=== PATIENT | male | born 1960 | race Caucasian/White ===

== ENCOUNTER → 2016-12-09 | Outpatient (CLI) | payer BC ==
[~2016-12-09] MED LIST: ALPR0.254 PO; FAMO-119 PO; FLEC100T2 PO; LEVO500T69 PO; LISI20TA PO; METR500T PO; NAPR-243 PO; OMEG-12 PO; RIVA20TA2 PO; flecainide; lisinopril; xarelto
--- NOTE | 2016-12-09 14:11 | Diagnostic Imaging Report ---
3 views of the right foot. INDICATION: Arthritis. FINDINGS: There is deformity with well corticated margins suggestive of old erosions at the joint surfaces of the PIP joint and the little finger. This could be secondary to trauma or prior arthritis. There is no acute fracture. No dislocation or radiopaque foreign body. Mild calcaneal spurring is seen. IMPRESSION: No acute process. Dictated by: Dictated on workstation # [id number]
--- NOTE | 2016-12-09 14:14 | Diagnostic Imaging Report ---
Three views of the right ankle. INDICATION: Arthritis. Achilles tendon abnormality. FINDINGS: There is no fracture, dislocation, or radiopaque foreign body seen. The ankle mortise is normal in configuration based on the anterior and oblique projections. The joint space evaluation on the lateral view is suboptimal. Mild calcaneal spur is seen. IMPRESSION: No definite abnormality. Dictated by: Dictated on workstation # [id number]
== END ==
LOC: RAD 12:55
PROVIDERS: ATTEND Internal Medicine
DX: M19.90 Unspecified osteoarthritis, unspecified site (principal)
CPT/HCPCS: 73610; 73630

== ENCOUNTER → 2017-02-13 | Outpatient (CLI) | payer BC ==
--- OUTSIDE RECORDS SUMMARY | 2017-02-13 09:56 | XMS REPORT | Continuity of Care Document ---
Author Author [facility] Organization [facility] Address Unknown Phone Unavailable Allergies Active Description Code Type Severity Reaction Onset Reported/Identified Relationship to Patient Clinical Status Yes No Known Drug Allergies [id number] Drug Allergy Unknown N/ A 10/22/2014 Medications Problems Date Dx Coded Attending Type Code Diagnosis Diagnosed By 10/24/2014 SHREYA RANKIN DO Ot 305.1 TOBACCO USE DISORDER 10/24/2014 SHREYA RANKIN DO Ot 327.23 OBSTRUCTIVE SLEEP APNEA (ADULT) ( PEDIATR 10/24/2014 SHREYA RANKIN DO Ot 401.9 HYPERTENSION NOS 10/24/2014 SHREYA RANKIN DO Ot 427.31 ATRIAL FIBRILLATION 10/24/2014 SHREYA RANKIN DO Ot 562.11 DIVERTICULITIS COLON (W/O MENT OF HEMORR 12/10/2016 SHREYA RANKIN DO Ot M19.90 UNSPECIFIED OSTEOARTHRITIS, UNSPECIFIED 01/13/2017 SHREYA RANKIN DO, Ot M19.90 UNSPECIFIED OSTEOARTHRITIS, UNSPECIFIED Procedures Results Encounters ACCT No. Visit Date/Time Discharge Status Pt. Type Provider Facility Loc./Unit Complaint [id number] 10/22/2014 04:22:00 2013 09:55:00 DIS Inpatient SHREYA RANKIN DO [facility] 4TH ACUTE DIVERTICULITIS [id number] 12/09/2016 12:55:00 ACT Outpatient SHREYA RANKIN DO [facility] RAD ARTHIRITIS
--- NOTE | 2017-02-13 12:58 | Diagnostic Imaging Report ---
PROCEDURE: MRI right joint lower extremity without contrast. TECHNIQUE: Multiplanar, multisequence non contrast-enhanced MRI of the right lower extremity was accomplished. INDICATION: Ankle pain. COMPARISON: There are no previous MRI examinations available for comparison. FINDINGS: The plain film examination of the right ankle performed on 12/09/16 failed to show an acute abnormality. On the STIR sagittal series, there is an area of slightly increased signal involving the inferior margin of the lateral malleolus of the distal fibula. There is also a suggestion of a faint linear area of diminished density extending through this area. I suspect there is a nondisplaced fracture in this region with associated bone edema. There is also slightly increased signal involving the posterolateral aspect of the talar body. This is probably secondary to bone edema from a recent contusion, as well. Furthermore there is increased signal about the posterior talofibular ligament on the axial T2 series. This does suggest edema/inflammation.. There may be a partial tear of the ligament but, for the most part, the ligament appears to be intact. The anterior talofibular ligament is also somewhat indistinct and this may be partially torn, as well. There is also a moderate joint effusion present and there is some fluid in the subtalar recess. There is also generalized soft tissue edema along the posterior aspect of the ankle joint. A small amount of soft tissue edema is also seen in the sinus Tarsi but there is no evidence of fibrosis to suggest a sinus Tarsi syndrome. No other abnormal signal is seen arising from the osseous structures to suggest bone edema or fracture. The other major ligaments and tendons are intact. There is a small amount of fluid in the tendon sheaths of the peroneal tendons and the posterior tibialis and flexor digitorum longus tendons. This does suggest mild tenosynovitis. IMPRESSION: 1. The area of altered signal along the posterior aspect of the lateral malleolus does suggest bone edema secondary to a microfracture. There is also a vague area of bone edema in the posterolateral aspect of the body of the talus. Most likely this is related to a recent contusion. No other acute bony abnormality is noted. 2. There is edema/inflammation of the posterior talofibular ligament. The ligament itself is somewhat indistinct and may be partially torn. There may also be a partial tear of the anterior talofibular ligament. The other major ligaments and tendons show no sign of an acute injury. 3. There is a moderate joint effusion present and there is soft tissue edema along the posterior aspect of the ankle joint. There is also some soft tissue edema in the sinus Tarsi but there is no sign of fibrosis. Dictated by: Dictated on workstation # [id number]
== END ==
LOC: RAD 09:53
PROVIDERS: ATTEND Orthopaedic Surgery
DX: M25.562 Pain in left knee (principal); M76.61 Achilles tendinitis, right leg
CPT/HCPCS: 73721

== ENCOUNTER 2019-11-14 15:12 | Outpatient (CLI) | payer BC ==
[~2019-11-14] VITALS: Ht 175 cm; Wt 114.5 kg
[~2019-11-14 15:12] MED LIST changes: +FEBU80TA PO
== END 2019-11-14 15:55 ==
LOC: PREOP 15:12
PROVIDERS: ATTEND Internal Medicine
DX: Z01.818 Encounter for other preprocedural examination (principal)

== ENCOUNTER → 2019-11-27 | Outpatient (CLI) | payer BC ==
--- NOTE | 2019-11-27 15:15 | Diagnostic Imaging Report ---
INDICATION: Low back pain. EXAMINATION: Lumbar spine. TECHNIQUE: PA and lateral views of the lumbar spine were obtained. FINDINGS: The vertebral body height and alignment appear normal. There are small osteophytes forming anteriorly at L3-L4 and L1-L2. The alignment is normal. The intervertebral disc spaces are well-maintained. IMPRESSION: Minimal spondylosis deformans. No acute abnormality is seen. Dictated by: Dictated on workstation # [id number]
== END ==
LOC: RAD 13:54
PROVIDERS: ATTEND Internal Medicine
DX: M54.42 Lumbago with sciatica, left side (principal)
CPT/HCPCS: 72100

== ENCOUNTER → 2020-08-12 | Outpatient (CLI) | payer BC ==
--- NOTE | 2020-08-12 16:09 | Diagnostic Imaging Report ---
PROCEDURE: MRI lumbar spine. TECHNIQUE: Multiplanar, multisequence MRI of the lumbar spine was performed without contrast. INDICATION: Low back pain and right hip pain. COMPARISON: No prior studies are available for comparison. FINDINGS: The curvature and alignment of the lumbar spine are normal. The vertebral body heights are maintained. No acute compression fracture is detected. 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 There is some generalized disc desiccation but disc heights are well-maintained. The conus is unremarkable at the L1 level. T12-L1: The central canal and neuroforamina are widely patent. L1-2: The central canal is widely patent. Mild bilateral neuroforaminal narrowing is seen. L2-3: The central canal is patent. The neuroforamina appear patent. L3-4: There is some ligamentous thickening and facet changes. There is also a mild broad-based disc/osteophyte complex flattening the ventral thecal sac. The central canal remains patent. There is moderate narrowing of the right lateral recess. There is also mild to moderate narrowing of the right neuroforamen. L4-5: A broad-based disc/osteophyte complex flattens the ventral thecal sac. The central canal is patent. There is moderate narrowing of the bilateral lateral recesses. There is also [id number] bilateral neuroforaminal narrowing. L5-S1: The central canal is patent. There is a broad-based disc/osteophyte complex flattening the ventral thecal sac. This does result in moderate bilateral lateral recess narrowing. There is also mild to moderate bilateral neuroforaminal narrowing. The paraspinous tissues are unremarkable. IMPRESSION: Generalized lumbar spondylosis with multilevel lateral recess and neuroforaminal narrowing described level by level above. No central canal stenosis is seen. No acute compression fracture is identified. Dictated by: Dictated on workstation # [id number]
== END ==
LOC: RAD 14:39
PROVIDERS: ATTEND Internal Medicine
DX: M48.07 Spinal stenosis, lumbosacral region (principal); M47.816 Spondylosis without myelopathy or radiculopathy, lumbar region; M99.03 Segmental and somatic dysfunction of lumbar region; M99.04 Segmental and somatic dysfunction of sacral region
CPT/HCPCS: 72148

== ENCOUNTER → 2021-07-07 | Outpatient (CLI) | payer BC ==
[~2021-07-07] MED LIST changes: +ALPR.25T PO
--- NOTE | 2021-07-07 15:17 | Diagnostic Imaging Report ---
INDICATION: Right hip pain. TIME OF EXAM: 2:42 p.m. Femoroacetabular alignment is normal. There are severe osteoarthritic changes to the right hip. There is complete loss of the superior joint space with significant narrowing of the medial joint space. There is spurring at the femoral head and neck junction. No fractures are seen. Right-sided rami are intact. IMPRESSION: Severe osteoarthritic changes to the right hip. No acute bony abnormality is detected. Dictated by: Dictated on workstation # [id number]
== END ==
LOC: RAD 14:19
PROVIDERS: ATTEND Internal Medicine
DX: M16.11 Unilateral primary osteoarthritis, right hip (principal)
CPT/HCPCS: 73502

== ENCOUNTER → 2022-02-26 | Outpatient (RCR) | payer BC | END | disposition home or self-care (01) | PROVIDERS: ATTEND Internal Medicine | DX: M48.061 Spinal stenosis, lumbar region without neurogenic claudication (principal) ==

== ENCOUNTER 2022-03-23 08:31 | Outpatient (RCR) | payer BC | END 2022-03-28 | disposition home or self-care (01) | PROVIDERS: ATTEND Internal Medicine | DX: M48.061 Spinal stenosis, lumbar region without neurogenic claudication (principal) ==

== ENCOUNTER 2022-04-15 15:16 | Outpatient (RCR) | payer BC | END 2022-04-28 | disposition home or self-care (01) | PROVIDERS: ATTEND Internal Medicine | DX: M48.061 Spinal stenosis, lumbar region without neurogenic claudication (principal) ==

== ENCOUNTER → 2022-08-06 | Outpatient (CLI) | payer BC ==
--- NOTE | 2022-08-06 18:13 | Diagnostic Imaging Report ---
PROCEDURE: US right lower extremity venous. TECHNIQUE: Multiple real-time grayscale images were obtained over the right lower extremity in various projections. Additional spectral analysis and color Doppler duplex images were also obtained. INDICATION: Pain and swelling. FINDINGS: The right common femoral, superficial femoral, popliteal veins and tibial veins demonstrate normal response to compression, augmentation, and Valsalva. There are no right lower extremity fluid collections or masses. IMPRESSION: No evidence of deep vein thrombosis in the right lower extremity. Dictated by: Dictated on workstation # [id number]
== END ==
LOC: RAD 14:15
PROVIDERS: ATTEND Orthopaedic Surgery
DX: Z96.641 Presence of right artificial hip joint (principal)

== ENCOUNTER 2022-08-10 16:03 | Outpatient (RCR) | payer BC | END 2022-08-28 | disposition home or self-care (01) | PROVIDERS: ATTEND Orthopaedic Surgery | DX: Z47.1 Aftercare following joint replacement surgery (principal); Z96.641 Presence of right artificial hip joint ==